=== PATIENT | female | born 1960 | race Caucasian/White ===

== ENCOUNTER 2019-02-06 04:32 | Observation (INO) | payer BC, MEDICARE ==
[2019-02-06] MEDS ORDERED: MORPHINE SULFATE 10MG/1ML **1ML VIAL IVP ONE (04:58)
[2019-02-06] MEDS ORDERED: ONDANSETRON HCL IV 4 MG/2 ML VIAL IVP ONE (04:58)
--- NOTE | 2019-02-06 05:03 | Emergency Department Record ---
History of Present Illness - General Chief Complaint: Abdominal Pain Stated Complaint: ABD PAIN Time Seen by Provider: 02/06/19 04:57 Source: Patient Mode of Arrival: Ambulatory Limitations: No limitations - History of Present Illness Initial Comments: 58 yo female presents to ED for evaluated of epigastric abdominal pain symptoms that began early this morning. Patient denies fevers, chills, or nausea/vomiting. Patient is s/p gastric bypass and pancreatic cyst removal previously by Dr. Brantley in [place]. Patient reports previous appy/bren as wel l. Patient denies change in stools or urinary symptoms. MD Complaint: Abdominal pain -: Hour(s) Location: Epigastric Radiation: Back Severity: Severe Severity scale (1-10): 9 Quality: Stabbing Consistency: Constant Improves With: Nothing Worsens With: Nothing Associated Symptoms: Vomiting - Related Data Patient : No Hx Age of Menopause: 43 Home Medications Medication Instructions Recorded Confirmed Last Taken Cyclobenzaprine HCl [Flexeril] 10 mg PO DAILY PRN 02/06/19 02/06/19 02/03/19 Hyoscyamine Sulfate 0.125 mg PO DAILY PRN 02/06/19 02/06/19 02/05/19 Metoprolol Succinate 25 mg PO DAILY 02/06/19 02/06/19 02/05/19 Ondansetron HCl [Zofran] 8 mg PO Q8HR PRN 02/06/19 02/06/19 02/05/19 Allergies Allergy/AdvReac Type Severity Reaction Status Date / Time meperidine HCl [From Demerol] Allergy Severe PT UNSURE Verified 01/13/14 15:47 OF REACTION Latex, Natural Rubber Allergy RASH Verified 01/13/14 15:48 Travel Screening - Travel/Exposure Within Last 30 Days Have you traveled within the last 30 days?: No - Travel/Exposure Within Last Year Have you traveled outside the [place] in the last year?: No - Additonal Travel Details Have you been exposed to anyone with a communicable illness?: No - Travel Symptoms Symptom Screening: None Review of Systems Constitutional: Denies: Chills, Fever, Malaise, Night sweats Eyes: Denies: Eye discharge, Eye pain ENT: Denies: Congestion, Ear pain, Epistaxis Respiratory: Denies: Cough, Dyspnea Cardiovascular: Denies: Chest pain, Dyspnea on exertion Endocrine: Denies: Fatigue, Heat or cold intolerance Gastrointestinal: Reports: Abdominal pain. Denies: Nausea, Vomiting Genitourinary: Denies: Incontinence, Retention Musculoskeletal: Denies: Arthralgia, Back pain Skin: Denies: Bruising, Change in color Neurological: Denies: Abnormal gait, Confusion, Headache, Seizure Psychiatric: Denies: Anxiety Hematological/Lymphatic: Denies: Anemia, Blood Clots Past Medical History - SOCIAL HISTORY Smoking Status: Current every day smoker Alcohol Use: None Drug Use: Occasional Drug Use Detail:: Marijuana - RESPIRATORY Hx Respiratory Disorders: Yes Hx Pneumonia: Yes - CARDIOVASCULAR Hx Cardio Disorders: Yes Hx Hypotension: Yes Comment:: D/T BACK AND KNEES - NEURO Hx Neuro Disorders: No - GI Hx GI Disorders: Yes Hx Abdominal Pain: Yes Hx Hepatitis/Jaundice: Yes (Hepatitis C positive) Hx Nausea/Vomiting: Yes (SEVERAL TIMES WEEK R/T BYPASS) Hx Pancreatitis: Yes (CHRONIC R/T BYPASS) Comment:: HEP C EXPOSURE BUT NEVER HAD DISEASE - Hx Genitourinary Disorders: No - ENDOCRINE Hx Endocrine Disorders: No - MUSCULOSKELETAL Hx Musculoskeletal Disorders: Yes Hx Arthritis: Yes Hx Back Injury: Yes Hx Musculoskeletal Disease: Yes (Degenerative Joint Disease) - PSYCH Hx Psych Problems: Yes Hx Anxiety: Yes Hx Depression: Yes Comment:: States has history of bipolar disorder; well-controlled with medica tion - HEMATOLOGY/ONCOLOGY Hx Hematology/Oncology Disorders: No Hx Anemia: No Family Medical History Any Significant Family History?: Yes Hx Alcohol Use: Father, Mother Hx Dementia: Mother Hx Diabetes: Mother, Grandparents *Diabetes Comment: Type 2 DM Hx Heart Disease: Father Hx HTN: Mother Hx Liver Disease: Father, Mother, Brother/Sister Physical Exam - General General Appearance: Alert, Oriented x3, Cooperative, Moderate distress Limitations: No limitations - Head Head exam: Atraumatic, Normocephalic, Normal inspection Head exam detail: negative: Abrasion, Contusion, Camarena's sign, General tenderness, Hematoma, Laceration - Eye Eye exam: Normal appearance. negative: Conjunctival injection, Periorbital swelling, Periorbital tenderness, Scleral icterus - ENT Ear exam: negative: Auricular hematoma, Auricular trauma Nasal Exam: negative: Active bleeding, Discharge, Dried blood, Foreign body Mouth exam: negative: Drooling, Laceration, Muffled voice, Tongue elevation - Neck Neck exam: Normal inspection. negative: Meningismus, Tenderness - Respiratory Respiratory exam: Normal lung sounds bilaterally. negative: Rales, Respiratory distress, Rhonchi, Stridor - Cardiovascular Cardiovascular Exam: Regular rate, Normal rhythm, Normal heart sounds - GI/Abdominal GI/Abdominal exam: Soft, Tenderness, Other (TTP epigastric region, no rebound, guarding, or peritoneal signs on examination.). negative: Rebound - Rectal Rectal exam: Deferred - exam: Deferred - Extremities Extremities exam: Normal inspection. negative: Pedal edema, Tenderness - Back Back exam: Denies: CVA tenderness (R), CVA tenderness (L) - Neurological Neurological exam: Alert, Normal gait, Oriented X3 - Psychiatric Psychiatric exam: Normal affect, Normal mood - Skin Skin exam: Normal color. negative: Abrasion Type of lesion: negative: abrasion Course Vital Signs 02/06/19 04:38 Temperature 98.8 F Pulse Rate 97 H Respiratory 24 Rate Blood Pressure 130/77 Pulse Ox 96 - Reevaluation(s) Reevaluation #1: 02/06/19 06:06 Laboratory studies were reviewed and are grossly unremarkable except for the following: WBC 14.8 Hgb 10.6 CO2 19 Urinalysis appears normal. Patient is returning from CT imaging, pain improved following Morphine administration. Reevaluation #2: 02/06/19 07:52 CT Abdomen and Pelvis: Fat stranding jejunum, may be from jejunitis vs. PUD Micronodules right lower lung, largest 4 mm. Case was discussed with Dr. Suero, no acute surgical concerns, and he is comfortable with admitting the patient her at [facility]. Case was then discussed with Reena Robles NP, will admit for further evaluation. Medical Decision Making - Lab Data Result diagrams: 02/06/19 05:35 02/06/19 05:35 Disposition Disposition: Admit Clinical Impression: Jejunitis Abdominal pain Qualifiers: Abdominal location: epigastric Qualified Code(s): R10.13 - Epigastric pain Leukocytosis Qualifiers: Leukocytosis type: unspecified Qualified Code(s): D72.829 - Elevated white blood cell count, unspecified Disposition: Still a Patient at [facility] Decision to Admit: Admit from ER Decision to Admit Date: 02/06/19 Decision to Admit Time: 07:58 Condition: (2) Stable Forms: Patient Portal Access Time of Disposition: 07:58 Quality - Quality Measures Quality Measures: N/A - Blood Pressure Screening Does Patient Have Any of the Following: No Blood Pressure Classification: Pre-Hypertensive BP Reading Systolic Measurement: 130 Diastolic Measurement: 77 Screening for High Blood Pressure: < Pre-Hypertensive BP, F/U Documented > [G8950] Pre-Hypertensive Follow-up Interventions: Referral to alternative/primary care provider.
[2019-02-06] MEDS: 0.9 % SODIUM CHLORIDE 1000ML 1,000 ML IV SCH ×2 (05:23→13:08)
[2019-02-06 05:51] LABS: ABSOLUTE NEUTROPHIL COUNT 9.44; BASO % 0.3 % (0-6); EOS % 5.3 % (0-6); GRAN % 63.9 % (47-80); HEMATOCRIT 32.2 % (35.0-47.0); HEMOGLOBIN 10.6 gm/dl (11.6-16.0); LYMPH % 22.9 % (16-45); MEAN CELL VOLUME 93.6 fl (81-97); MEAN CORPUSCULAR HEMOGLOBIN 30.8 pg (27-33); MEAN CORPUSCULAR HGB CONC 32.9 g/dl (32-36); MEAN PLATELET VOLUME 9.3 fl (7.4-10.4); MONO % 7.6 % (0-9); PLATELET COUNT 322 K/uL (130-400); RED BLOOD COUNT 3.44 M/uL (3.80-5.40); WHITE BLOOD COUNT W/O DIFF 14.8 K/uL (4.2-12.2)
[2019-02-06 05:54] LABS: BLOOD UREA NITROGEN 26 mg/dL (6-20)
[2019-02-06 05:55] LABS: CREATININE 0.8 mg/dL (0.5-0.9); EST GLOMERULAR FILTRATION RATE > 60 mL/min; LIPASE 25 U/L (13-60); TOTAL PROTEIN 6.1 g/dL (6.6-8.7)
[2019-02-06 05:55] LABS: URINE APPEARANCE CLEAR; URINE BILIRUBIN NEGATIVE (NEGATIVE); URINE BLOOD NEGATIVE (NEGATIVE); URINE COLOR YELLOW; URINE GLUCOSE (UA) NEGATIVE (NEGATIVE); URINE KETONE TRACE (NEGATIVE); URINE LEUKOCYTE ESTERASE NEGATIVE (NEGATIVE); URINE NITRITE NEGATIVE (NEGATIVE); URINE PROTEIN NEGATIVE (NEGATIVE)
[2019-02-06 05:57] LABS: GLUCOSE,RANDOM 112 mg/dL (74-109)
[2019-02-06 06:00] LABS: ALB/GLOB RATIO 1.5 (1.1-1.8); ALBUMIN 3.7 g/dL (4.0-5.0); ALKALINE PHOSPHATASE 79 U/L (35-104); ALT/SGPT 7 U/L (<33); AST/SGOT 12 U/L (10.0-35.0)
[2019-02-06] MEDS ORDERED: HYDROMORPHONE HCL 2 MG/ML VIAL IVP ONE (08:00)
[2019-02-06] MEDS ORDERED: PANTOPRAZOLE SODIUM IV 40 MG VIAL IVP ONE (08:00)
[2019-02-06] MEDS ORDERED: CYCLOBENZAPRINE 10MG TABLET PO PRN (10:30)
[2019-02-06] MEDS ORDERED: SUCRALFATE 1 G/10 ML UD PO PRN (10:30)
[2019-02-06] MEDS ORDERED: HYDROMORPHONE HCL 2 MG/ML VIAL IV PRN (10:30)
[2019-02-06] MEDS ORDERED: ESTRADIOL 1 MG PO SCH (10:30)
[2019-02-06] MEDS ORDERED: ONDANSETRON HCL IV 4 MG/2 ML VIAL IVP PRN (10:30)
[2019-02-06] MEDS ORDERED: HYOSCYAMINE SULFATE ODT 0.125 MG TAB.SUBL PO PRN (10:30)
--- NOTE | 2019-02-06 11:26 | History & Physical ---
History of Present Illness - Date of Service Date of Service for History & Physical: 02/06/19 - History of Present Illness Admitting Diagnosis: Jejunitis. Epigastric abdominal pain. Leukocytosis History of Present Illness: Mrs. Hogan is a 58 yo female presents to ED for evaluated of epigastric abdominal pain symptoms that began early this morning. Patient denies fevers, chills, or nausea/vomiting. Patient is s/p gastric bypass and pancreatic cyst removal previously by Dr. Brantley in [place]. Patient reports previous appy/bren as well. Patient denies change in stools or urinary symptoms. History includes: every day smoker, occasional marijuana use, hx pneumonia, hep C positive, nausea/vomiting several times/week since bypass, pancreatitis since bypass, spinal DJD, anxiety, depression, bipolar disorder. Gastric bypass was 2004, last surgery was for pancreatitic cyst in 2014. In the ED, her VS were stable. Labs revealed WBC 14.8, Hgb 10.6 (likely chronic secondary to gastric bypass). UA neg. Abd/Pelvis revealed fat stran ding of jejunum, may be jejunitis vs. PUD. Micronodules of RLL, largest 4mm. Dr. Dominguez called Dr. Suero- no acute surgical concerns. Pt. was admitted observation for further evaluation/management. 02/06/19: Pt. is presently resting in bed. She c/o LUQ abdominal pain, tenderness with palpation. She states the pain is improved from yesterday. Continue IVF at 100ml/hr, protonix 40mg daily, carafate 1g bid, dilaudid 2mg IVP q4h prn, zofran 4mg q4h prn nausea. Will d/c pt's home med estrace, provided education regarding increased CV risks with current smoking status. Will trial ice chips. PCP: Aida Huber NP Travel Screening - Travel/Exposure Within Last 30 Days Have you traveled within the last 30 days?: No - Travel/Exposure Within Last Year Have you traveled outside the [place] in the last year?: No - Additonal Travel Details Have you been exposed to anyone with a communicable illness?: No - Travel Symptoms Symptom Screening: None Review of Systems Constitutional: Denies: Chills, Fever, Malaise, Night sweats Eyes: Denies: Eye discharge, Eye pain ENT: Denies: Congestion, Ear pain, Epistaxis Respiratory: Denies: Cough, Dyspnea Cardiovascular: Denies: Chest pain, Dyspnea on exertion Endocrine: Denies: Fatigue, Heat or cold intolerance Gastrointestinal: Reports: Abdominal pain. Denies: Nausea, Vomiting Genitourinary: Denies: Incontinence, Retention Musculoskeletal: Denies: Arthralgia, Back pain Skin: Denies: Bruising, Change in color Neurological: Denies: Abnormal gait, Confusion, Headache, Seizure Psychiatric: Denies: Anxiety Hematological/Lymphatic: Denies: Anemia, Blood Clots Past Medical History - SOCIAL HISTORY Smoking Status: Current every day smoker Alcohol Use: None Drug Use: None - RESPIRATORY Hx Respiratory Disorders: Yes Hx Pneumonia: Yes - CARDIOVASCULAR Hx Cardio Disorders: Yes Hx Hypotension: Yes Comment:: D/T BACK AND KNEES - NEURO Hx Neuro Disorders: No - GI Hx GI Disorders: Yes Hx Abdominal Pain: Yes Hx Hepatitis/Jaundice: Yes (Hepatitis C positive) Hx Nausea/Vomiting: Yes (SEVERAL TIMES WEEK R/T BYPASS) Hx Pancreatitis: Yes (CHRONIC R/T BYPASS) Comment:: HEP C EXPOSURE BUT NEVER HAD DISEASE - Hx Genitourinary Disorders: No Hx UTI: Yes (2 MONTHS AGO) - ENDOCRINE Hx Endocrine Disorders: No - MUSCULOSKELETAL Hx Musculoskeletal Disorders: Yes Hx Arthritis: Yes Hx Back Injury: Yes Hx Musculoskeletal Disease: Yes (Degenerative Joint Disease) - PSYCH Hx Psych Problems: Yes Hx Anxiety: Yes Hx Depression: Yes Comment:: States has history of bipolar disorder; well-controlled with medication - HEMATOLOGY/ONCOLOGY Hx Hematology/Oncology Disorders: No Hx Anemia: No Family Medical History Any Significant Family History?: Yes Hx Alcohol Use: Father, Mother Hx Dementia: Mother Hx Diabetes: Mother, Grandparents *Diabetes Comment: Type 2 DM Hx Heart Disease: Father Hx HTN: Mother Hx Liver Disease: Father, Mother, Brother/Sister H&P Meds/Allergies - Allergies Allergies: Allergies Allergy/AdvReac Type Severity Reaction Status Date / Time meperidine HCl [From Demerol] Allergy Severe PT UNSURE Verified 01/13/14 15:47 OF REACTION Latex, Natural Rubber Allergy RASH Verified 01/13/14 15:48 - Home Medications Home Medications Medication Instructions Recorded Confirmed Last Taken Cyclobenzaprine HCl [Flexeril] 10 mg PO DAILY PRN 02/06/19 02/06/19 02/03/19 Hyoscyamine Sulfate 0.125 mg PO DAILY PRN 02/06/19 02/06/19 02/05/19 Metoprolol Succinate 25 mg PO DAILY 02/06/19 02/06/19 02/05/19 Ondansetron HCl [Zofran] 8 mg PO Q8HR PRN 02/06/19 02/06/19 02/05/19 - Active Medications Active Medications: Current Medications Cyclobenzaprine HCl (Flexeril) 10 mg PO DAILY PRN PRN Reason: PAIN - MILD (1-4) Hydromorphone HCl (Dilaudid) 2 mg IV Q4H PRN PRN Reason: ABDOMINAL PAIN Hyoscyamine (Levsin Odt) 0.125 mg PO DAILY PRN PRN Reason: DIARRHEA Sodium Chloride () 1,000 mls @ 0 mls/hr IV .Q0M COLTEN Last Admin: 02/06/19 05:23 Dose: 1,000 mls/hr Documented by: Sodium Chloride () 1,000 mls @ 100 mls/hr IV .Q10H PRN PRN Reason: LARGE VOLUME IV Metoprolol Succinate (Toprol Xl) 25 mg PO DAILY [facility] Non-Formulary Medication (Estradiol [Estrace]) 1 mg PO DAILY [facility] Ondansetron HCl (Zofran) 4 mg IVP Q4H PRN PRN Reason: NAUSEA Pantoprazole Sodium (Protonix Iv) 40 mg IV DAILY [facility] Sucralfate (Carafate) 1 g PO BID PRN PRN Reason: ABDOMINAL PAIN Physical Exam - Vital Signs Vital Signs: Vital Signs - Last 24 Hrs Temp Pulse Pulse Resp BP BP Pulse Ox 02/06/19 08:52 93 H 18 132/68 97 02/06/19 08:50 98.3 F 81 16 134/73 99 02/06/19 07:10 85 18 126/75 99 02/06/19 05:50 93 H 20 134/71 100 02/06/19 04:38 98.8 F 97 H 24 130/77 96 - General General Appearance: Alert, Oriented x3, Cooperative, No acute distress Limitations: No limitations - Head Head exam: Atraumatic, Normocephalic, Normal inspection Head exam detail: negative: Abrasion, Contusion, Camarena's sign, General tender ness, Hematoma, Laceration - Eye Eye exam: Normal appearance. negative: Conjunctival injection, Periorbital swelling, Periorbital tenderness, Scleral icterus - ENT Ear exam: negative: Auricular hematoma, Auricular trauma Nasal Exam: negative: Active bleeding, Discharge, Dried blood, Foreign body Mouth exam: negative: Drooling, Laceration, Muffled voice, Tongue elevation - Neck Neck exam: Normal inspection. negative: Meningismus, Tenderness - Respiratory Respiratory exam: Normal lung sounds bilaterally. negative: Rales, Respiratory distress, Rhonchi, Stridor - Cardiovascular Cardiovascular Exam: Regular rate, Normal rhythm, Normal heart sounds - GI/Abdominal GI/Abdominal exam: Soft, Tenderness, Other (TTP epigastric region, no rebound, guarding, or peritoneal signs on examination.). negative: Rebound - Rectal Rectal exam: Deferred - exam: Deferred - Extremities Extremities exam: Normal inspection. negative: Pedal edema, Tenderness - Back Back exam: Denies: CVA tenderness (R), CVA tenderness (L) - Neurological Neurological exam: Alert, Normal gait, Oriented X3 - Psychiatric Psychiatric exam: Normal affect, Normal mood - Skin Skin exam: Normal color. negative: Abrasion Type of lesion: negative: abrasion Results - Labs Result Diagrams: 02/06/19 05:35 02/06/19 05:35 Labs Last 24 Hours: Laboratory Results - last 24 hr 02/06/19 02/06/19 02/06/19 05:35 05:35 05:50 WBC 14.8 H RBC 3.44 L Hgb 10.6 L Hct 32.2 L MCV 93.6 MCH 30.8 MCHC 32.9 RDW 16.0 H Plt Count 322 MPV 9.3 Gran % 63.9 Lymphocytes % 22.9 Monocytes % 7.6 Eosinophils % 5.3 Basophils % 0.3 Absolute Neutrophils 9.44 Sodium 138 Potassium 4.4 Chloride 109 H Carbon Dioxide 19.0 L Anion Gap 10.0 BUN 26 H Creatinine 0.8 Estimated GFR > 60 Random Glucose 112 H Calcium 8.6 Total Bilirubin 0.30 AST 12 ALT 7 Alkaline Phosphatase 79 Total Protein 6.1 L Albumin 3.7 L Globulin 2.4 Albumin/Globulin Ratio 1.5 Lipase 25 Urine Color Yellow Urine Appearance Clear Urine pH 7.0 Ur Specific [place] 1.010 Urine Protein Negative Urine Glucose (UA) Negative Urine Ketones Trace H Urine Blood Negative Urine Nitrite Negative Urine Bilirubin Negative Urine Urobilinogen 1.0 Ur Leukocyte Esterase Negative - Imaging and Cardiology CT scan - abdomen Status: Report reviewed VTE H&P Assessment - Risk for VTE Risk for VTE: Yes Risk Level: Moderate Risk Assessment Date: 02/06/19 Risk Assessment Time: 11:28 VTE Orders Placed or Will Be Placed: Yes Plan - Detailed Diagnosis and Plan (1) Abdominal pain Current Visit: Yes Status: Acute Qualifiers: Abdominal location: epigastric Qualified Code(s): R10.13 - Epigastric pain Base Code: R10.9 - UNSPECIFIED ABDOMINAL PAIN Comment: 02/06/19: -abd/pelvis CT demonstrates poss jejunitis vs. PUD -Continue IVF at 100ml/hr, protonix 40mg daily, carafate 1g bid, dilaudid 2mg IVP q4h prn, zofran 4mg q4h prn nausea. (2) Leukocytosis Current Visit: Yes Status: Acute Qualifiers: Leukocytosis type: unspecified Qualified Code(s): D72.829 - Elevated white blood cell count, unspecified Base Code: D72.829 - ELEVATED WHITE BLOOD CELL COUNT, UNSPECIFIED Comment: 02/06/19: -WBC in ED 14.8 -Will continue to monitor (3) Tobacco use disorder Current Visit: Yes Status: Acute Base Code: F17.200 - NICOTINE DEPENDENCE, UNSPECIFIED, UNCOMPLICATED Comment: 02/06/19: -Every day smoker unmotivated to quit (4) At risk for deep venous thrombosis Current Visit: Yes Status: Acute Base Code: Z91.89 - OTH PERSONAL RISK FACTORS, NOT ELSEWHERE CLASSIFIED Comment: 02/06/19: -lovenox 40mg SC qhs (5) Full code status Current Visit: Yes Status: Acute Base Code: Z78.9 - OTHER SPECIFIED HEALTH STATUS Comment: 02/06/19: -Pt. is a full code
[2019-02-06] MEDS: METOPROLOL SUCC 25 MG TAB.ER PO SCH (12:25)
--- NOTE | 2019-02-06 13:52 | CT SCAN REPORT ---
EXAM: CT OF THE ABDOMEN AND PELVIS WITH CONTRAST HISTORY: UPPER ABDOMINAL PAIN. PRIOR APPENDECTOMY, CHOLECYSTECTOMY, TUBAL LIGATION, GASTRIC BYPASS, GASTRIC BYPASS REVISION, AND PANCREATIC CYST SURGERY. TECHNIQUE: CT of the abdomen and pelvis was performed with 100 ml Omnipaque 300 intravenous contrast. Comparison: CT abdomen and pelvis 01/25/15. FINDINGS: Small and calcified right renal lobe nodules are stable since 2015 comparison. Scattered emphysema in both lung bases. Unremarkable appearance of the liver. Mild prominence of the intrahepatic and extrahepatic biliary tree, likely related to prior cholecystectomy. unremarkable appearance of the adrenal glands, spleen, and pancreas. Surgical clip noted near the pancreatic tail. Symmetric renal perfusion. No hydronephrosis. Unremarkable appearance of the urinary bladder. Status post gastric bypass. Thickened appearance of the jejunum near the gastric anastomosis. The stomach and small bowel are nondilated. No focal colonic thickening or inflammation. No free air. No free fluid. No intrapelvic mass detected. Calcification of the aortoiliac arterial access without aneurysm or dissection. Ventral abdominal wall mesh and surgical clips. Advanced disk degeneration at L4-L5 of the lumbar spine. No acute osseous findings. IMPRESSION: 1. NO DEFINITE ACUTE FINDINGS IN THE ABDOMEN OR PELVIS. 2. THICKENED APPEARANCE OF THE PROXIMAL JEJUNUM NEAR THE GASTRIC ANASTOMOSIS; THIS COULD REPRESENT UNDERDISTENTION OR INFECTIOUS/INFLAMMATORY ENTERITIS. 3. ADDITIONAL INCIDENTAL AND CHRONIC FINDINGS ARE DESCRIBED IN THE BODY OF THE REPORT, NO SIGNIFICANT CHANGE FROM 2015 COMPARISON. JOB NUMBER: [id number] [facility]
[2019-02-06] MEDS: HYDROMORPHONE HCL 2 MG/ML VIAL IVP PRN ×2 (16:56→21:06)
[2019-02-06] MEDS: 0.9 % SODIUM CHLORIDE 1000ML 1,000 ML IV PRN (17:00)
[2019-02-06 18:36] LABS: ABSOLUTE NEUTROPHIL COUNT 4.49; BASO % 0.5 % (0-6); EOS % 5.4 % (0-6); GRAN % 37.7 % (47-80); HEMATOCRIT 32.7 % (35.0-47.0); HEMOGLOBIN 10.7 gm/dl (11.6-16.0); LYMPH % 47.9 % (16-45); MEAN CELL VOLUME 93.4 fl (81-97); MEAN CORPUSCULAR HEMOGLOBIN 30.5 pg (27-33); MEAN CORPUSCULAR HGB CONC 32.7 g/dl (32-36); MEAN PLATELET VOLUME 9.2 fl (7.4-10.4); MONO % 8.5 % (0-9); PLATELET COUNT 272 K/uL (130-400); RED CELL DISTRIBUTION WIDTH 16.1 % (11.5-14.5); WHITE BLOOD COUNT W/O DIFF 11.9 K/uL (4.2-12.2)
[2019-02-06] MEDS: ENOXAPARIN 40 MG/0.4 ML SYR SQ SCH (21:06)
[2019-02-07] MEDS: HYDROMORPHONE HCL 2 MG/ML VIAL IVP PRN ×7 (01:45→21:27)
[2019-02-07] MEDS: 0.9 % SODIUM CHLORIDE 1000ML 1,000 ML IV PRN ×3 (03:13→23:07)
[2019-02-07] MEDS ORDERED: TRAMADOL HCL 50 MG TABLET PO PRN (07:19)
[2019-02-07] MEDS: ONDANSETRON 4 MG ODT TABLET SL PRN (08:39)
[2019-02-07] MEDS: METOPROLOL SUCC 25 MG TAB.ER PO SCH (09:40)
[2019-02-07] MEDS ORDERED: PANTOPRAZOLE SODIUM IV 40 MG VIAL IV SCH (10:00)
[2019-02-07] MEDS ORDERED: ACETAMINOPHEN 1,000 MG/100 ML BTL IVPB ONE (10:48)
--- NOTE | 2019-02-07 11:41 | Physician Progress Note ---
Subjective - Date Date of Physician Progress Note: 02/07/19 - Subjective Subjective Comment: 02/07/19: -Attempted to advance diet to clear liquids (pt was tolerating ice chips), but she reports "spasming/sharp pain when fluids hit stomach". Will change prn carafate and levsin to scheduled. Ofirmev ordered for headache. PO pain meds (ultram) ordered for mild-mod pain, may continue 1mg dilaudid IVP q4h for severe pain. Will continue to monitor. Objective - Vital Signs Vital Signs: Vital Signs - Last 24 Hrs Temp Pulse Resp BP BP Pulse Ox 02/07/19 08:00 97.7 F 81 17 118/64 99 02/07/19 07:48 20 02/06/19 21:00 71 17 02/06/19 17:00 98.0 F 71 17 126/67 99 02/06/19 12:50 97.8 F 96 H 15 112/56 100 - General General Appearance: Alert, Oriented x3, Cooperative, No acute distress Limitations: No limitations - Head Head exam: Atraumatic, Normocephalic, Normal inspection Head exam detail: negative: Abrasion, Contusion, Camarena's sign, General tenderness, Hematoma, Laceration - Eye Eye exam: Normal appearance. negative: Conjunctival injection, Periorbital swelling, Periorbital tenderness, Scleral icterus - ENT Ear exam: negative: Auricular hematoma, Auricular trauma Nasal Exam: negative: Active bleeding, Discharge, Dried blood, Foreign body Mouth exam: negative: Drooling, Laceration, Muffled voice, Tongue elevation - Neck Neck exam: Normal inspection. negative: Meningismus, Tenderness - Respiratory Respiratory exam: Normal lung sounds bilaterally. negative: Rales, Respiratory distress, Rhonchi, Stridor - Cardiovascular Cardiovascular Exam: Regular rate, Normal rhythm, Normal heart sounds - GI/Abdominal GI/Abdominal exam: Soft, Tenderness, Other (TTP epigastric region, no rebound, guarding, or peritoneal signs on examination.). negative: Rebound - Rectal Rectal exam: Deferred - exam: Deferred - Extremities Extremities exam: Normal inspection. negative: Pedal edema, Tenderness - Back Back exam: Denies: CVA tenderness (R), CVA tenderness (L) - Neurological Neurological exam: Alert, Normal gait, Oriented X3 - Psychiatric Psychiatric exam: Normal affect, Normal mood - Skin Skin exam: Normal color. negative: Abrasion Type of lesion: negative: abrasion Assessment and Plan - Assessment and Plan (1) Abdominal pain Current Visit: Yes Status: Acute Qualifiers: Abdominal location: epigastric Qualified Code(s): R10.13 - Epigastric pain Base Code: R10.9 - UNSPECIFIED ABDOMINAL PAIN Comment: 02/07/19: -abd/pelvis CT demonstrates poss jejunitis vs. PUD -Continue IVF at 100ml/hr, protonix 40mg daily, carafate 1g bid, levsin 0.125mg daily, dilaudid 1mg IVP q4h prn, zofran 4mg q4h prn nausea. -Will advance diet as tolerated (2) Leukocytosis Current Visit: Yes Status: Acute Qualifiers: Leukocytosis type: unspecified Qualified Code(s): D72.829 - Elevated white blood cell count, unspecified Base Code: D72.829 - ELEVATED WHITE BLOOD CELL COUNT, UNSPECIFIED Comment: 02/07/19: -WBC in ED 14.8, decreased to 11.9 -Will continue to monitor (3) Tobacco use disorder Current Visit: Yes Status: Acute Base Code: F17.200 - NICOTINE DEPENDENCE, UNSPECIFIED, UNCOMPLICATED Comment: 02/07/19: -Every day smoker unmotivated to quit (4) At risk for deep venous thrombosis Current Visit: Yes Status: Acute Base Code: Z91.89 - OTH PERSONAL RISK FACTORS, NOT ELSEWHERE CLASSIFIED Comment: 02/07/19: -lovenox 40mg SC qhs (5) Full code status Current Visit: Yes Status: Acute Base Code: Z78.9 - OTHER SPECIFIED HEALTH STATUS Comment: 02/07/19: -Pt. is a full code Results - Labs Result Diagrams: 02/06/19 18:30 02/06/19 05:35 Labs Last 24 Hours: Laboratory Results - last 24 hr 02/06/19 18:30 WBC 11.9 RBC 3.50 L Hgb 10.7 L Hct 32.7 L MCV 93.4 MCH 30.5 MCHC 32.7 RDW 16.1 H Plt Count 272 MPV 9.2 Gran % 37.7 L Lymphocytes % 47.9 H Monocytes % 8.5 Eosinophils % 5.4 Basophils % 0.5 Absolute Neutrophils 4.49 DVT/PE Assessment - Risk for VTE Risk for VTE: No Risk Level: Moderate Risk Assessment Date: 02/06/19 Risk Assessment Time: 11:28 VTE Orders Placed or Will Be Placed: Yes - Active Medicaitons Current Medications: Current Medications Cyclobenzaprine HCl (Flexeril) 10 mg PO DAILY PRN PRN Reason: PAIN - MILD (1-4) Enoxaparin Sodium (Lovenox) 40 mg SQ QHS [facility] Last Admin: 02/06/19 21:06 Dose: 40 mg Documented by: Hydromorphone HCl (Dilaudid) 1 mg IVP Q4H PRN PRN Reason: PAIN - MODERATE (5-7) Last Admin: 02/07/19 09:39 Dose: 1 mg Documented by: Hyoscyamine (Levsin Odt) 0.125 mg PO DAILY PRN PRN Reason: DIARRHEA Sodium Chloride () 1,000 mls @ 100 mls/hr IV .Q10H PRN PRN Reason: LARGE VOLUME IV Last Admin: 02/07/19 03:13 Dose: 100 mls/hr Documented by: Metoprolol Succinate (Toprol Xl) 25 mg PO DAILY [facility] Last Admin: 02/07/19 09:40 Dose: 25 mg Documented by: Ondansetron HCl (Zofran Odt) 8 mg SL Q8H PRN PRN Reason: NAUSEA/VOMITING Last Admin: 02/07/19 08:39 Dose: 8 mg Documented by: Pantoprazole Sodium (Protonix Iv) 40 mg IV DAILY [facility] Last Admin: 02/07/19 09:40 Dose: 40 mg Documented by: Sucralfate (Carafate) 1 g PO BID PRN PRN Reason: ABDOMINAL PAIN Tramadol HCl (Ultram) 50 mg PO Q6H PRN PRN Reason: ABDOMINAL PAIN AMI Plan - Labs Result Diagrams: 02/06/19 18:30 02/06/19 05:35
[2019-02-07] MEDS: HYOSCYAMINE SULFATE ODT 0.125 MG TAB.SUBL SL SCH ×4 (11:58→23:02)
[2019-02-07] MEDS: SUCRALFATE 1 G/10 ML UD PO SCH ×2 (11:58→21:26)
[2019-02-07] MEDS: ENOXAPARIN 40 MG/0.4 ML SYR SQ SCH (21:26)
[2019-02-08] MEDS: HYDROMORPHONE HCL 2 MG/ML VIAL IVP PRN ×2 (01:42→06:00)
[2019-02-08] MEDS: HYOSCYAMINE SULFATE ODT 0.125 MG TAB.SUBL SL SCH ×3 (04:44→12:53)
[2019-02-08 06:58] LABS: ABSOLUTE NEUTROPHIL COUNT 1.74; HEMATOCRIT 28.7 % (35.0-47.0); HEMOGLOBIN 8.9 gm/dl (11.6-16.0); MEAN PLATELET VOLUME 9.3 fl (7.4-10.4); PLATELET COUNT 401 K/uL (130-400); RED BLOOD COUNT 3.02 M/uL (3.80-5.40); RED CELL DISTRIBUTION WIDTH 15.4 % (11.5-14.5); WHITE BLOOD COUNT W/O DIFF 6.2 K/uL (4.2-12.2)
[2019-02-08 07:02] LABS: MEAN CORPUSCULAR HEMOGLOBIN 29.4 pg (27-33)
[2019-02-08 07:12] LABS: ALB/GLOB RATIO 1.4 (1.1-1.8); ALBUMIN 3.6 g/dL (4.0-5.0); ALKALINE PHOSPHATASE 75 U/L (35-104); ALT/SGPT 7 U/L (<33); AST/SGOT 15 U/L (10.0-35.0); BLOOD UREA NITROGEN 12 mg/dL (6-20); CREATININE 0.6 mg/dL (0.5-0.9); EST GLOMERULAR FILTRATION RATE > 60 mL/min; GLUCOSE,RANDOM 93 mg/dL (74-109); HYPOCHROMIA 1+; PLATELET ESTIMATE NORMAL (NORMAL); TOTAL PROTEIN 6.2 g/dL (6.6-8.7)
[2019-02-08] MEDS ORDERED: HYDROCODONE/APAP 10/325 TABLET PO PRN (09:23)
[2019-02-08] MEDS: METOPROLOL SUCC 25 MG TAB.ER PO SCH (09:29)
[2019-02-08] MEDS: SUCRALFATE 1 G/10 ML UD PO SCH (09:30)
[2019-02-08] MEDS: ONDANSETRON 4 MG ODT TABLET SL PRN (09:31)
[2019-02-08] MEDS ORDERED: PANTOPRAZOLE SODIUM 40 MG TABLET PO SCH (10:00)
--- NOTE | 2019-02-08 11:12 | Discharge Summary ---
Providers Discharge Summary Date: 02/08/19 Date of admission: 02/06/19 08:32 Expected Date of Discharge: 02/08/19 Attending physician: TRE FRIAS Primary care physician: JENI ALBA N.P. Physical Exam - Vital Signs Vital Signs: Vital Signs - Last 24 Hrs Temp Pulse Resp BP BP Pulse Ox 02/08/19 07:59 97.5 F L 70 16 116/70 100 02/08/19 07:30 16 02/07/19 21:00 65 17 02/07/19 16:00 97.9 F 65 17 111/49 99 02/07/19 11:43 97.5 F L 76 16 109/69 100 - General General Appearance: Alert, Oriented x3, Cooperative, No acute distress Limitations: No limitations - Head Head exam: Atraumatic, Normocephalic, Normal inspection Head exam detail: negative: Abrasion, Contusion, Camarena's sign, General tenderness, Hematoma, Laceration - Eye Eye exam: Normal appearance. negative: Conjunctival injection, Periorbital swelling, Periorbital tenderness, Scleral icterus - ENT Ear exam: negative: Auricular hematoma, Auricular trauma Nasal Exam: negative: Active bleeding, Discharge, Dried blood, Foreign body Mouth exam: negative: Drooling, Laceration, Muffled voice, Tongue elevation - Neck Neck exam: Normal inspection. negative: Meningismus, Tenderness - Respiratory Respiratory exam: Normal lung sounds bilaterally. negative: Rales, Respiratory distress, Rhonchi, Stridor - Cardiovascular Cardiovascular Exam: Regular rate, Normal rhythm, Normal heart sounds - GI/Abdominal GI/Abdominal exam: Soft, Tenderness, Other (TTP epigastric region, no rebound, guarding, or peritoneal signs on examination.). negative: Rebound - Rectal Rectal exam: Deferred - exam: Deferred - Extremities Extremities exam: Normal inspection. negative: Pedal edema, Tenderness - Back Back exam: Denies: CVA tenderness (R), CVA tenderness (L) - Neurological Neurological exam: Alert, Normal gait, Oriented X3 - Psychiatric Psychiatric exam: Normal affect, Normal mood - Skin Skin exam: Normal color. negative: Abrasion Type of lesion: negative: abrasion Hospitalization - Hospitalization Admission Diagnosis: Jejunitis. Epigastric abdominal pain. Leukocytosis - Problem List/Discharge Diagnosis (1) Abdominal pain Current Visit: Yes Status: Acute Discharge Diagnosis: Abdominal location: epigastric Qualified Code(s): R10.13 - Epigastric pain Base Code: R10.9 - UNSPECIFIED ABDOMINAL PAIN Comment: 02/08/19: -abd/pelvis CT demonstrates poss jejunitis vs. PUD -Pt. is tolerating clear fluids, will advance to full -carafate and levsin helping abd pain -PO pain meds started today (2) Leukocytosis Current Visit: Yes Status: Acute Discharge Diagnosis: Leukocytosis type: unspecified Qualified Code(s): D72.829 - Elevated white blood cell count, unspecified Base Code: D72.829 - ELEVATED WHITE BLOOD CELL COUNT, UNSPECIFIED Comment: 02/08/19: -Resolved (3) Tobacco use disorder Current Visit: Yes Status: Acute Base Code: F17.200 - NICOTINE DEPENDENCE, UNSPECIFIED, UNCOMPLICATED Comment: 02/08/19: -Spoke with pt regarding risks of tobacco use, today she states she is interested in quitting, provided pos reinforcement (4) At risk for deep venous thrombosis Current Visit: Yes Status: Acute Base Code: Z91.89 - OTH PERSONAL RISK FACTORS, NOT ELSEWHERE CLASSIFIED Comment: 02/08/19: -lovenox 40mg SC qhs (5) Full code status Current Visit: Yes Status: Acute Base Code: Z78.9 - OTHER SPECIFIED HEALTH STATUS Comment: 02/08/19: -Pt. is a full code - Hospitalization Course Disposition: Home, Self-Care Hospital Course: Mrs. Hogan is a 58 yo female presents to ED for evaluated of epigastric abdominal pain symptoms that began early this morning. Patient denies fevers, chills, or nausea/vomiting. Patient is s/p gastric bypass and pancreatic cyst removal previously by Dr. Brantley in [place]. Patient reports previous appy/bren as well. Patient denies change in stools or urinary symptoms. History includes: every day smoker, occasional marijuana use, hx pneumonia, hep C positive, nausea/vomiting several times/week since bypass, pancreatitis since bypass, spinal DJD, anxiety, depression, bipolar disorder. Gastric bypass was 2004, last surgery was for pancreatitic cyst in 2014. In the ED, her VS were stable. Labs revealed WBC 14.8, Hgb 10.6 (likely chronic secondary to gastric bypass). UA neg. Abd/Pelvis revealed fat stranding of jejunum, may be jejunitis vs. PUD. Micronodules of RLL, largest 4mm. Dr. Dominguez called Dr. Suero- no acute surgical concerns. Pt. was admitted observation for further evaluation/management. 02/06/19: Pt. is presently resting in bed. She c/o LUQ abdominal pain, tenderness with palpation. She states the pain is improved from yesterday. Continue IVF at 100ml/hr, protonix 40mg daily, carafate 1g bid, dilaudid 2mg IVP q4h prn, zofran 4mg q4h prn nausea. Will d/c pt's home med estrace, provided education regarding increased CV risks with current smoking status. Will trial ice chips. 02/07/19: -Attempted to advance diet to clear liquids (pt was tolerating ice chips), but she reports "spasming/sharp pain when fluids hit stomach". Will change prn carafate and levsin to scheduled. Ofirmev ordered for headache. PO pain meds (ultram) ordered for mild-mod pain, may continue 1mg dilaudid IVP q4h for severe pain. Will continue to monitor. 02/08/19: -Pt. is now tolerating clears and PO pain meds, carafate and levsin effective for decreasing spasms/pain. Will plan to d/c home. Per pt, she has been referred to GI by per PCP for f/u. PCP: Jeni Alba NP Procedures: Imaging and X-Rays 02/06/19 04:58 ABDOMEN/PELVIS W CONTRAST [CT] Stat Abnormal Labs: Abnormal Lab Results 02/06/19 02/06/19 02/06/19 Range/Units 05:35 05:35 05:50 WBC 14.8 H (4.2-12.2) K/uL RBC 3.44 L (3.80-5.40) M/uL Hgb 10.6 L (11.6-16.0) gm/dl Hct 32.2 L (35.0-47.0) % MCHC (32-36) g/dl RDW 16.0 H (11.5-14.5) % Plt Count (130-400) K/uL Gran % (47-80) % Neutrophils % (47-80) % Lymphocytes % (16-45) % Lymphocytes (16-45) % Chloride 109 H (98-107) mmol/L Carbon Dioxide 19.0 L (22-29) mmol/L BUN 26 H (6-20) mg/dL Random Glucose 112 H (74-109) mg/dL Total Protein 6.1 L (6.6-8.7) g/dL Albumin 3.7 L (4.0-5.0) g/dL Urine Ketones Trace H (NEGATIVE) 02/06/19 02/08/19 02/08/19 Range/Units 18:30 06:25 06:25 WBC (4.2-12.2) K/uL RBC 3.50 L 3.02 L (3.80-5.40) M/uL Hgb 10.7 L 8.9 L (11.6-16.0) gm/dl Hct 32.7 L 28.7 L (35.0-47.0) % MCHC 31.0 L (32-36) g/dl RDW 16.1 H 15.4 H (11.5-14.5) % Plt Count 401 H (130-400) K/uL Gran % 37.7 L (47-80) % Neutrophils % 38.0 L (47-80) % Lymphocytes % 47.9 H (16-45) % Lymphocytes 53.0 H (16-45) % Chloride 110 H (98-107) mmol/L Carbon Dioxide 19.0 L (22-29) mmol/L BUN (6-20) mg/dL Random Glucose (74-109) mg/dL Total Protein 6.2 L (6.6-8.7) g/dL Albumin 3.6 L (4.0-5.0) g/dL Urine Ketones (NEGATIVE) Condition at Discharge: (2) Stable Discharge Diagnosis: PUD VTE Discharge VTE Reason For No Overlap Therapy: Not Indicated Discharge Medications - Discharge Medications Prescriptions: Sucralfate [Carafate] 1 g PO BID PRN #28 udc PRN Reason: Abdominal Pain Hyoscyamine Sulfate 0.125 mg PO TID PRN #45 tab.rapdis PRN Reason: Abdominal Pain Hydrocodone/Acetaminophen [[place] 10-325 Tablet] 1 each PO TID PRN #15 tablet PRN Reason: Abdominal Pain Home Medications: Ambulatory Orders Ergocalciferol (Vitamin D2) [Vitamin D2] 50,000 unit PO WEEKLY 01/25/15 [Last Taken 01/30/19] Pantoprazole Sodium [Protonix] 40 mg PO DAILY 01/25/15 [Last Taken 02/05/19] Cyclobenzaprine HCl [Flexeril] 10 mg PO TID PRN 02/06/19 [Last Taken 02/03/19] Metoprolol Succinate 25 mg PO DAILY 02/06/19 [Last Taken 02/05/19] Ondansetron HCl [Zofran] 8 mg PO Q8HR PRN 02/06/19 [Last Taken 02/05/19] Hydrocodone/Acetaminophen [[place] 10-325 Tablet] 1 each PO TID PRN #15 tablet 02/08/19 [Last Taken Unknown] Hyoscyamine Sulfate 0.125 mg PO TID PRN #45 tab.rapdis 02/08/19 [Last Taken Unknown] Hyoscyamine Sulfate [Levsin Odt] 0.125 mg SL Q4H #0 tab.subl 02/08/19 [Last Taken Unknown] Pantoprazole Sodium [Protonix] 40 mg PO DAILYAC #0 tablet.dr 02/08/19 [Last Taken Unknown] Sucralfate [Carafate] 1 g PO BID udc 02/08/19 [Last Taken Unknown] Sucralfate [Carafate] 1 g PO BID PRN #28 udc 02/08/19 [Last Taken Unknown] Discharge Plan - Discharge Instructions Activity at Discharge: Increase Activity as Tolerated Diet at Discharge: Advance to Usual Diet Instructions: Acute Abdominal Pain (DC), Chronic Abdominal Pain (GEN) Additional Instructions: Follow up with your PCP in 7-10 days Call the GI specialist that you were referred to and set up appt to further evaluate for possible peptic ulcer vs. inflammation Advance diet as tolerated, avoid heavily seasoned/spicy foods Return to the ED if symptoms worsen Quality Measures - Quality Measures Quality Measures: Documentation of Current Medications in Medical Record, Screening for High Blood Pressure and F/U Documented - Current Medications Quality Measure: Measure #130: Documentation of Current Medications Documentation of Current Medications: <Current Medications Documented/Reviewed> [[id number]] - Blood Pressure Screening Quality Measure: Screening for High Blood Pressure and Follow-Up Documented Does Patient Have Any of the Following: No Blood Pressure Classification: Pre-Hypertensive BP Reading Systolic Measurement: 132 Diastolic Measurement: 68 Screening for High Blood Pressure: < Pre-Hypertensive BP, F/U Documented > [[id number]] Pre-Hypertensive Follow-up Interventions: Follow-up with rescreen every year. - Elder Abuse Suspicion Index EASI Reference Information: Thania COVINGTON, Jennifer Kumari, Mesha Melgoza, Jimbo Spangler.Development and validation of a tool to assist physicians identification of elder abuse: The Elder Abuse Suspicion Index (EASI ). Journal of Elder Abuse and Neglect, 2008; 20 (3): 276-300.
== END 2019-02-08 14:10 | disposition home or self-care (01) ==
LOC: ER 04:32 → MEDSURG 08:32
PROVIDERS: ADMIT Internal Medicine; ATTEND Internal Medicine
DX: R10.13 Epigastric pain (principal); D72.829 Elevated white blood cell count, unspecified; K52.9 Noninfective gastroenteritis and colitis, unspecified; I95.9 Hypotension, unspecified; R11.2 Nausea with vomiting, unspecified; K85.90 Acute pancreatitis without necrosis or infection, unspecified; B19.20 Unspecified viral hepatitis C without hepatic coma; Z90.49 Acquired absence of other specified parts of digestive tract; M19.90 Unspecified osteoarthritis, unspecified site; F31.9 Bipolar disorder, unspecified; F17.210 Nicotine dependence, cigarettes, uncomplicated; Z98.84 Bariatric surgery status
CPT/HCPCS: 83690; 85025; 80053 ×2; 81003; 85027; 74177; G0378 ×3; Q9967; J1980 ×2; J2405; J1170 ×3; J3490; J2270; 96374; 96375; 99217; 99220; 99226; 99285; C9113; J1650; J7030